=== PATIENT | male | born 2000 | race Caucasian/White ===

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

== ENCOUNTER 2022-07-01 05:44 | Emergency (ER) | payer OTHER ==
[2022-07-01] MEDS ORDERED: Acetaminophen/oxyCODONE 325-5 MG Tab PO ONE (06:59)
== END 2022-07-01 07:15 | disposition home or self-care (01) ==
LOC: JD.ED 05:44
DX: R07.89 Other chest pain (principal); J10.1 Influenza due to other identified influenza virus with other respiratory manifestations; E66.9 Obesity, unspecified; Z68.42 Body mass index [BMI] 45.0-49.9, adult
CPT/HCPCS: 71045; 93005; 99285; A9270